=== PATIENT | female | born 1960 | race African-American/Black ===

== ENCOUNTER 2017-04-18 00:03 | Emergency (ER) | payer BC ==
[~2017-04-18] VITALS: Ht 160 cm; Wt 80.3 kg
[~2017-04-18 00:03] MED LIST: ACYC200C PO; GABA-585 PO; TELM40TA PO; UBID30CA9 PO; [UNRECOGNIZED DRUG - REMARK] PO; unknown BP med PO
[2017-04-18 00:05] VITALS: BP 112/55
--- NOTE | 2017-04-18 00:22 | PHYS DOC ---
Past Medical History Past Medical History: Cancer, Hypertension, Other Additional Past Medical Histor: breast cancer Past Surgical History: Hysterectomy, Tonsillectomy, Other Additional Past Surgical Histo: Right mastectomy Alcohol Use: None Drug Use: None Adult General Chief Complaint Chief Complaint: MUSCLE SPASM/CRAMP [facility] HPI Patient is a 56 year old female presents to the emergency department stating that she has been having leg cramps that started 11:00 tonight. She states that she does have leg cramps occasionally that only last approximately 20 minutes however tonight they lasted longer. She denies taking any medications to help with the pain or discomfort. Patient does state that her father last and she is really not been eating or drinking very well. She denies any fever, chills or any nausea vomiting. Patient did state that she's had a potassium pill tonight thinking that maybe her potassium was, nose and was causing the pain and discomfort. Patient denies any chest pain or discomfort. She denies any discoloration in her urine. Patient continues to state that she has lost 7 pounds since . Review of Systems Review of Systems Constitutional: Denies fever or chills [] Eyes: Denies change in visual acuity, redness, or eye pain [] HENT: Denies nasal congestion or sore throat [] Respiratory: Denies cough or shortness of breath [] Cardiovascular: No additional information not addressed in HPI [] GI: Denies abdominal pain, nausea, vomiting, bloody stools or diarrhea [] : Denies dysuria or hematuria [] Musculoskeletal: Denies back pain or joint pain. Complaint of lower leg cramping bilaterally. Integument: Denies rash or skin lesions [] Neurologic: Denies headache, focal weakness or sensory changes [] Endocrine: Denies polyuria or polydipsia [] Allergies Allergies Allergies Coded Allergies Type Severity Reaction Last Updated Verified No Known Drug Allergies 05/28/14 No Physical Exam Physical Exam Constitutional: Well developed, well nourished, no acute distress, non-toxic appearance. [] HENT: Normocephalic, atraumatic, bilateral external ears normal, oropharynx moist, no oral exudates, nose normal. [] Eyes: PERRLA, EOMI, conjunctiva normal, no discharge. [] Neck: Normal range of motion, no tenderness, supple, no stridor. [] Cardiovascular:Heart rate regular rhythm, no murmur [] Lungs & Thorax: Bilateral breath sounds clear to auscultation [] Skin: Warm, dry, no erythema, no rash. [] Back: No tenderness Extremities: No tenderness, no cyanosis, no clubbing, ROM intact, no edema. Peripheral pulses 2+ cap refill brisk less than 2 seconds. Negative Homans sign. Neurologic: Alert and oriented X 3, normal motor function, normal sensory function, no focal deficits noted. [] Psychologic: Affect normal, judgement normal, mood normal. [] Current Patient Data Vital Signs Vital Signs Date Time Temp Pulse Resp B/P (MAP) Pulse Ox O2 Delivery O2 Flow Rate FiO2 04/18/17 00:05 97.9 79 16 97 Room Air 97.9 Lab Values Laboratory Tests Test 04/18/17 00:15 White Blood Count 7.5 x10^3/uL (4.0-11.0) Red Blood Count 4.37 x10^6/uL (3.50-5.40) Hemoglobin 13.5 g/dL (12.0-15.5) Hematocrit 40.5 % (36.0-47.0) Mean Corpuscular Volume 93 fL (79-100) Mean Corpuscular Hemoglobin 31 pg (25-35) Mean Corpuscular Hemoglobin Concent 34 g/dL (31-37) Red Cell Distribution Width 13.5 % (11.5-14.5) Platelet Count 415 x10^3/uL (140-400) H Neutrophils (%) (Auto) 86 % (31-73) H Lymphocytes (%) (Auto) 11 % (24-48) L Monocytes (%) (Auto) 2 % (0-9) Eosinophils (%) (Auto) 0 % (0-3) Basophils (%) (Auto) 0 % (0-3) Neutrophils # (Auto) 6.4 x10^3uL (1.8-7.7) Lymphocytes # (Auto) 0.8 x10^3/uL (1.0-4.8) L Monocytes # (Auto) 0.2 x10^3/uL (0.0-1.1) Eosinophils # (Auto) 0.0 x10^3/uL (0.0-0.7) Basophils # (Auto) 0.0 x10^3/uL (0.0-0.2) Segmented Neutrophils % 85 % (35-66) H Lymphocytes % 10 % (24-48) L Monocytes % 5 % (0-10) Platelet Estimate Adequate (ADEQUATE) Urine Collection Type Unknown Urine Color Yellow Urine Clarity Clear Urine pH 6.0 Urine Specific Rowe >=1.030 Urine Protein Negative mg/dL (NEG-TRACE) Urine Glucose (UA) Negative mg/dL (NEG) Urine Ketones (Stick) Negative mg/dL (NEG) Urine Blood Negative (NEG) Urine Nitrite Negative (NEG) Urine Bilirubin Negative (NEG) Urine Urobilinogen Dipstick 1.0 mg/dL (0.2 mg/dL) Urine Leukocyte Esterase Negative (NEG) Urine RBC 0 /HPF (0-2) Urine WBC Occ /HPF (0-4) Urine Squamous Epithelial Cells Mod /LPF Urine Bacteria 0 /HPF (0-FEW) Urine Mucus Marked /LPF Sodium Level 138 mmol/L (136-145) Potassium Level 4.4 mmol/L (3.5-5.1) Chloride Level 102 mmol/L (98-107) Carbon Dioxide Level 24 mmol/L (21-32) Anion Gap 12 (6-14) Blood Urea Nitrogen 23 mg/dL (7-20) H Creatinine 1.1 mg/dL (0.6-1.0) H Estimated GFR (Cockcroft-Gault) 62.4 BUN/Creatinine Ratio 21 (6-20) H Glucose Level 214 mg/dL (70-99) H Calcium Level 9.3 mg/dL (8.5-10.1) Magnesium Level 2.3 mg/dL (1.8-2.4) Total Bilirubin 0.5 mg/dL (0.2-1.0) Aspartate Amino Transferase (AST) 20 U/L (15-37) Alanine Aminotransferase (ALT) 28 U/L (14-59) Alkaline Phosphatase 99 U/L (46-116) Creatine Kinase 248 U/L (26-192) H Creatine Kinase MB (Mass) 5.6 ng/mL (0.0-3.6) H Creatine Kinase MB Relative Index 2.3 % (0-4) Total Protein 7.7 g/dL (6.4-8.2) Albumin 3.9 g/dL (3.4-5.0) Albumin/Globulin Ratio 1.0 (1.0-1.7) Laboratory Tests 04/18/17 00:15 Laboratory Tests 04/18/17 00:15 EKG EKG [] Radiology/Procedures Radiology/Procedures [] Course & Med Decision Making Course & Med Decision Making Pertinent Labs and Imaging studies reviewed. (See chart for details) CBC, CMP are within normal limits. CK-MB is slightly elevated. Spoke with patient regards to home medications she denies being on any statin medications. Spoke with Dr. Kilgore in regards to patient being discharged home. She recommends that the patient be seen by her primary care physician on Wednesday with repeat labs. Patient will be discharged home with recommendations to drink plenty of water, as well as to make sure that she's eating at least 6 meals a day. Patient will be discharged home in stable condition signs symptoms to return back to emergency prior has been provided. Patient agrees with discharge instructions treatment regimens and follow-up recommendations. [] Dragon Disclaimer Dragon Disclaimer This electronic medical record was generated, in whole or in part, using a voice recognition dictation system. Departure Departure Impression: Primary Impression: Muscle cramps Disposition: HOME, SELF-CARE Condition: STABLE Referrals: SERGE KYLE MD (PCP) Patient Instructions: Muscle Cramps, [id number] Additional Instructions: Activity as tolerated. Drink plenty of fluids. Make sure you are eating at least 6 small meals a day. Follow-up through primary care physician on Wednesday to have a repeat CK-MB completed. Your CK-MB was slightly elevated here in the emergency department. Return back to emergency department for signs and symptoms of become worse. PARVIZ BREWER APRN Apr 18, 2017 00:22
[2017-04-18 00:28] LABS: BILIRUBIN,URINE NEGATIVE (NEG); GLUCOSE,URINE NEGATIVE (NEG); NITRITE,URINE NEGATIVE (NEG); PROTEIN,URINE NEGATIVE (NEG-TRACE)
[2017-04-18 00:29] LABS: BASO % 0 % (0-3); EOS % 0 % (0-3); HEMATOCRIT 40.5 % (36.0-47.0); HEMOGLOBIN 13.5 g/dL (12.0-15.5); LYMPH # 0.8 x10^3/uL (1.0-4.8); LYMPH % 11 % (24-48); MEAN CORPUSCULAR HEMOGLOBIN 31 pg (25-35); MEAN CORPUSCULAR HGB CONC 34 g/dL (31-37); MEAN CORPUSCULAR VOLUME 93 fL (79-100); MONO % 2 % (0-9); NEUT % 86 % (31-73); PLATELET COUNT 415 x10^3/uL (140-400); RED BLOOD COUNT 4.37 x10^6/uL (3.50-5.40); RED CELL DISTRIBUTION WIDTH 13.5 % (11.5-14.5); WHITE BLOOD COUNT 7.5 x10^3/uL (4.0-11.0)
[2017-04-18 00:35] LABS: BACTERIA,URINE 0 /HPF (0-FEW); RBC,URINE 0 /HPF (0-2); SQUAMOUS EPITHELIAL CELL,UR MOD /LPF; WBC,URINE OCC /HPF (0-4)
[2017-04-18 00:36] LABS: CALCIUM 9.3 mg/dL (8.5-10.1); CREATININE 1.1 mg/dL (0.6-1.0); GFR 62.4; POTASSIUM 4.4 mmol/L (3.5-5.1)
[2017-04-18 00:41] LABS: ALBUMIN 3.9 g/dL (3.4-5.0); MAGNESIUM 2.3 mg/dL (1.8-2.4); TOTAL BILIRUBIN 0.5 mg/dL (0.2-1.0); TOTAL PROTEIN 7.7 g/dL (6.4-8.2)
[2017-04-18 00:50] LABS: CKMB MASS 5.6 ng/mL (0.0-3.6)
[2017-04-18 00:53] LABS: PLT ESTIMATE ADEQUATE (ADEQUATE)
== END 2017-04-18 01:15 | disposition home or self-care (01) ==
LOC: ER 00:03
DX: R25.2 Cramp and spasm (principal); I10 Essential (primary) hypertension; Z90.710 Acquired absence of both cervix and uterus; Z90.11 Acquired absence of right breast and nipple
CPT/HCPCS: 36415; 80053; 81001; 82553; 83735; 85007; 85025; 99284

== ENCOUNTER → 2019-08-03 | Outpatient (CLI) | payer BC ==
--- NOTE | 2019-08-03 14:11 | KCIC ---
EXAM: Abdomen and pelvis CT without intravenous contrast. HISTORY: Flank pain. Hematuria. TECHNIQUE: Computed tomographic images of the abdomen and pelvis were obtained without contrast. Multiplanar reformatting was performed. *One or more of the following individualized dose reduction techniques were utilized for this examination: 1. Automated exposure control. 2. Adjustment of the mA and/or kV according to patient size. 3. Use of iterative reconstruction technique. COMPARISON: None. FINDINGS: Evaluation of the lower thorax demonstrates no infiltrate or pleural effusion. The heart is normal in size. No hepatic lesion is seen. The gallbladder, pancreas, spleen and adrenal glands are unremarkable. There are tiny nonobstructing renal stones measuring 1 mm. No ureteral stone or bladder stone is seen. There is no hydronephrosis. There is an ill-defined hypodense lesion along the lateral mid zone of the left kidney measuring 1.8 cm. There is no appendicitis. There is no bowel obstruction. There is moderate colonic stool. The uterus is surgically absent. There is a tiny fat-containing umbilical hernia. There is a tiny fat-containing supraumbilical hernia. There are degenerative changes involving the spine. There are Minna to be changes at L4-L5. IMPRESSION: 1. Bilateral nephrolithiasis. There is no evidence of ureterolithiasis or hydronephrosis. 2. 1.8 cm hypodense lesion within the left kidney, possibly a cyst. Renal sonography can be performed to confirm benignity. 3. Tiny fat-containing umbilical and supraumbilical hernias. Electronically signed by: Keren Aguilar MD (08/03/2019 2:09 PM) [id number]
== END | disposition home or self-care (01) ==
LOC: KCIC CT 13:22
PROVIDERS: ATTEND Internal Medicine
DX: N20.0 Calculus of kidney (principal); N28.89 Other specified disorders of kidney and ureter; K42.9 Umbilical hernia without obstruction or gangrene
CPT/HCPCS: 74176

== ENCOUNTER 2019-09-04 15:50 | Emergency (ER) | payer BC ==
[~2019-09-04] VITALS: Ht 160 cm; Wt 80.0 kg
[2019-09-04 16:39] VITALS: BP 161/72
--- NOTE | 2019-09-04 17:27 | RAD ---
STUDY: US VENOUS LOWER EXTREMITY RIGHT INDICATION: Right lateral knee/lower thigh swelling and pain. TECHNIQUE: Color-flow and pulsed wave duplex ultrasound with compression of venous structures of the right lower extremity. COMPARISON: None Available. FINDINGS: Duplex ultrasound with compression of the deep venous structures of the right lower extremity from the common femoral vein through the popliteal vein is negative for DVT. The posterior tibial and peroneal veins are segmentally visualized and patent where seen. Normal venous waveforms and augmentation are noted throughout. Knee joint effusion. IMPRESSION: 1. No deep venous thrombosis seen throughout the right lower extremity. 2. Incidental note made of a knee joint effusion. Electronically signed by: GIOVANNI BURNETTE MD (09/04/2019 5:24 PM) [id number]
--- NOTE | 2019-09-04 17:45 | PHYS DOC ---
Past Medical History Past Medical History: Cancer Additional Past Medical Histor: breast cancer Past Surgical History: Hysterectomy Additional Past Surgical Histo: Right mastectomy Alcohol Use: None Drug Use: None Adult General Chief Complaint Chief Complaint: LOWER EXT PAIN [facility] HPI Patient is a 58 year old female who presents to the emergency department with complaints of right lateral knee and right lower thigh swelling and pain without any known injury or fall for the last 3 days. Patient states at times the pain is been so severe she has been unable to bear weight. She denies any numbness, tingling, or weakness of the affected joint. She denies any redness, or warmth to the affected extremity. Patient states she has a history of arthritis, she denies any history of problems with arthritis in her knees. She currently rates her pain a 6 out of 10 on pain scale. She has been taking ibuprofen at home with little relief of her symptoms. All other ROS is neg unless otherwise noted in HPI. Review of Systems Review of Systems See Above Allergies Allergies Allergies Coded Allergies Type Severity Reaction Last Updated Verified No Known Drug Allergies 05/28/14 No Physical Exam Physical Exam See Above Constitutional: Well developed, well nourished, no acute distress, non-toxic appearance. [] HENT: Normocephalic, atraumatic, bilateral external ears normal, nose normal. [] Eyes: PERRLA, EOMI, conjunctiva normal, no discharge. [] Neck: Normal range of motion, no stridor. [] Cardiovascular:Heart rate regular rhythm Lungs & Thorax: Respirations even and unlabored, no retractions, no respiratory distress Skin: Warm, dry, no erythema, no rash. [] Extremities: No bony tenderness, no cyanosis, no clubbing, ROM intact, 1+ edema to R knee, no obvious deformity. Neurologic: Alert and oriented X 3, no focal deficits noted. [] Psychologic: Affect normal, judgement normal, mood normal. [] Current Patient Data Vital Signs Vital Signs Date Time Temp Pulse Resp B/P (MAP) Pulse Ox O2 Delivery O2 Flow Rate FiO2 09/04/19 16:39 97.9 57 20 161/72 (101) 99 Room Air 97.9 EKG EKG [] Radiology/Procedures Radiology/Procedures PROCEDURE: VENOUS LOWER EXTREMITY RIGHT STUDY: US VENOUS LOWER EXTREMITY RIGHT INDICATION: Right lateral knee/lower thigh swelling and pain. TECHNIQUE: Color-flow and pulsed wave duplex ultrasound with compression of venous structures of the right lower extremity. COMPARISON: None Available. FINDINGS: Duplex ultrasound with compression of the deep venous structures of the right lower extremity from the common femoral vein through the popliteal vein is negative for DVT. The posterior tibial and peroneal veins are segmentally visualized and patent where seen. Normal venous waveforms and augmentation are noted throughout. Knee joint effusion. IMPRESSION: 1. No deep venous thrombosis seen throughout the right lower extremity. 2. Incidental note made of a knee joint effusion.[] Course & Med Decision Making Course & Med Decision Making Pertinent Labs and Imaging studies reviewed. (See chart for details) [] Dragon Disclaimer Dragon Disclaimer This electronic medical record was generated, in whole or in part, using a voice recognition dictation system. Departure Departure Impression: Primary Impression: Effusion, right knee Additional Impression: Right leg pain Disposition: 01 HOME, SELF-CARE Condition: STABLE Referrals: SERGE KYLE MD (PCP) NANCY GIRARD MD Patient Instructions: Knee Effusion, [id number] Additional Instructions: You may take Tylenol or ibuprofen as needed for pain. Recommend application of ice, elevation, and rest of affected extremity. Wear the merlin wrap that was applied, Follow up with Dr. Girard if symptoms persist. Return to the ER if your symptoms worsen. Splinting Splinting : Location: R knee Pre-Made Type: merlin wrap Pre-Proc Neuro Vasc Exam: normal Post-Proc Neuro Vasc Exam: normal, unchanged from pre-exam Problem Qualifiers CHRISTIANE HINDS APRN Sep 04, 2019 17:45
== END 2019-09-04 17:58 | disposition home or self-care (01) ==
LOC: ER 15:50
DX: M25.461 Effusion, right knee (principal); M79.651 Pain in right thigh; Z85.3 Personal history of malignant neoplasm of breast; Z90.710 Acquired absence of both cervix and uterus; Z98.890 Other specified postprocedural states
CPT/HCPCS: 93971; 99284